=== PATIENT | male | born 1960 | race Caucasian/White ===

== ENCOUNTER → 2016-10-18 | Day surgery (SDC) | payer OTHER ==
[2016-10-14 09:23] VITALS: Ht 188 cm; Wt 69.5 kg
[~2016-10-18] VITALS: Ht 188 cm; Wt 69.5 kg
[~2016-10-18] MED LIST: ASPI81TA28 PO; ATOR-26 PO; CHOL20007 PO; DOCU-94 PO; ESCI10TA17 PO; FLUT0.15 NAE; FLUT1INH INH; FOLI1TAB7 PO; IPRA1AER2 INH; LAMO100T16 PO; LIDOCAINE HCL 2% 2 ML VIAL (20MG/ML) ONE; OXYC-643 PO; PANT40TA PO; PROPOFOL IV EMULSION 10 MG/ML 20 ML VIAL IV ONE; ROTI1DIS TOP; SODIUM CHLORIDE 0.9% 500ML 500 ML IV ONE; SUCR1TAB29 PO
--- NOTE | 2016-10-18 09:08 | Endo History and Physical ---
History & Physical Date of Service: October 18, 2016. Chief Complaint: Gerd with Batista Referring Physician: Dr. Emmanuel Scanlon History of Present Illness epigastric pain and reflux symptoms despite high dose PPI and carafate. Drinks 4-5 POTS of coffee every day, smokes cigarettes. Past Medical History Gastrointestinal Disorder, Reflux, Heart Disease, COPD Past Surgical History Hx Cardiac Surgery: Yes (HEART CATH, NO STENTS; PACE/DEFIB 2013) Hx Internal Defibrillator: Yes (2013) Hx Pacemaker: Yes (2013) Hx Abdominal Surgery: Yes (APPY, HERNIA REPAIR) Hx of Implantable Prosthesis: No Hx Post-Op Nausea and Vomiting: No Hx Cancer Surgery: No Hx Thoracic Surgery: No Hx Orthopedic: Yes (RT THIGH TUMOR REMOVAL (BENIGN)) Hx Urinary Tract Surgery: Yes (BLADDER ENLARGEMENT PROCEDURE) Family History None Social History Smoking Status: Current Every Day Smoker Hx Substance Use: Yes (MARIJUANA 2-3X/MONTH) Hx Alcohol Use: Yes (QUIT 26 YEARS AGO) Allergies Coded Allergies: BEE STING (Verified Allergy, Severe, ANAPHYLAXIS AND RASH, 10/14/16) Mushroom (Verified Allergy, Severe, ANAPHYLAXIS AND RASH, 10/14/16) Penicillins (Verified Allergy, Severe, ANAPHYLAXIS, 10/14/16) Adhesives (Verified Allergy, Unknown, RASH - WITH NICOTINE PATCH, 10/14/16) Current Medications Reported Home Medications Medications Dose Route/Sig Max Daily Dose Days Date Category Lexapro (Escitalopram Oxalate) 10 Mg Tab 1.5 Tab PO QAM 10/14/16 Reported Vitamin D3 (Cholecalciferol) 2,000 Unit Tab 1 Tab PO BID 10/14/16 Reported Lipitor (Atorvastatin Calcium) 80 Mg Tab 80 Mg PO QAM 10/14/16 Reported Aspirin Ec (Aspirin) 81 Mg Tab 81 Mg PO QAM 10/14/16 Reported Breo Ellipta (Fluticasone Furoate-Vilanterol) 1 Inh Inh 1 Puff INH QAM 10/14/16 Reported Folvite (Folic Acid) 1 Mg Tab 1 Mg PO QAM 10/14/16 Reported Protonix (Pantoprazole Sodium) 40 Mg Tab 40 Mg PO BID 10/14/16 Reported Carafate (Sucralfate) 1 Gm Tab 1 Gm PO QID 10/14/16 Reported Combivent Respimat (Ipratropium-Albuterol) 1 Aer Aer 1 Puffs INH QID 10/14/16 Reported Neupro (Rotigotine) 1 Mg/24 Hr Dis 1 Mg TOP DAILY 10/14/16 Reported Lamictal (Lamotrigine) 100 Mg Tab 100 Mg PO QAM 10/14/16 Reported Colace (Docusate Sodium) 100 Mg Cap 1 Cap PO BID PRN 10/14/16 Reported Flonase Allergy Relief (Fluticasone Propionate (Nasal)) 50 Mcg/Act Spr 2 Sprays ZOFIA DAILY PRN 10/14/16 Reported Vital Signs Weight (Kilograms): 69.55 Height (Feet): 6 Height (Inches): 2 Date Time Temp Pulse Resp B/P Pulse Ox O2 Delivery O2 Flow Rate FiO2 10/18/16 08:28 36.6 63 20 140/92 99 Room Air Physical Exam General Appearance: WD/WN, no apparent distress Assessment and Plan EGD with BATISTA placement
--- NOTE | 2016-10-18 09:23 | GI REPORT ---
Procedure Date: 10/18/2016 9:00 AM Procedure: Upper GI endoscopy Indications: Epigastric abdominal pain, Heartburn, Failure to respond to medical treatment - on high dose PPI and carafate with on-going symptoms; drinks 4-6 POTS of coffee a day; smokes cigarettes Medicines: Monitored Anesthesia Care Complications: No immediate complications. Estimated blood loss: None. Estimated Blood Loss: Estimated blood loss: none. Procedure: Pre-Anesthesia Assessment: - Prior to the procedure, a History and Physical was performed, and patient medications, allergies and sensitivities were reviewed. The patient's tolerance of previous anesthesia was reviewed. - The risks and benefits of the procedure and the sedation options and risks were discussed with the patient. All questions were answered and informed consent was obtained. - Patient identification and proposed procedure were verified prior to the procedure by the physician and the nurse. The procedure was verified in the pre-procedure area in the procedure room. - Mental Status Examination: alert and oriented. Airway Examination: normal oropharyngeal airway and neck mobility. Respiratory Examination: clear to auscultation. CV Examination: normal. Abdominal Examination: bowel sounds present, abdomen soft and non-tender, no masses or organomegaly noted. - ASA Grade Assessment: III - A patient with severe systemic disease. After obtaining informed consent, the endoscope was passed under direct vision. Throughout the procedure, the patient's blood pressure, pulse, and oxygen saturations were monitored continuously. The scope was introduced through the mouth, and advanced to the second part of duodenum. The upper GI endoscopy was accomplished without difficulty. The patient tolerated the procedure well. Findings: The examined esophagus was normal. The BATISTA capsule with delivery system was introduced through the mouth and advanced into the esophagus, such that the BATISTA pH capsule was positioned 34 cm from the incisors, which was 6 cm proximal to the EG junction. Suction was applied to the well of the BATISTA pH capsule to suck in the adjacent mucosa of the esophagus using the external vacuum pump set at a minimum vacuum pressure of 550 mmHg for 60 seconds. The BATISTA pH capsule was then deployed by depressing the plunger on top of the handle to advance the locking pin into the mucosa, thereby attaching the capsule to the esophagus. The plunger was then rotated a quarter turn clockwise to release the capsule from the delivery system. The delivery system was then withdrawn. Endoscopy was utilized for probe placement and diagnostic evaluation. A medium amount of food (residue) was found in the gastric body. The examined duodenum was normal. Impression: - Normal esophagus. No esophagitis. - A medium amount of food (residue) in the stomach. - Normal examined duodenum. - The BATISTA pH capsule was positioned 34 cm from the naris, which was 6 cm proximal to the EG junction. - No specimens collected. Recommendation: - Follow BATISTA instructions. Meri Lao D.O. Meri Lao, 10/18/2016 9:23:19 AM This report has been signed electronically. Note Initiated On: 10/18/2016 9:00 AM I attest to the content of the Intraoperative Record and orders documented therein, exceptions below
--- NOTE | 2016-10-18 09:28 | Discharge Instructions ---
Endoscopy Patient Instructions Date / Procedure(s) Performed October 18, 2016. EGD Allergy Information Coded Allergies: BEE STING (Verified Allergy, Severe, ANAPHYLAXIS AND RASH, 10/14/16) Mushroom (Verified Allergy, Severe, ANAPHYLAXIS AND RASH, 10/14/16) Penicillins (Verified Allergy, Severe, ANAPHYLAXIS, 10/14/16) Adhesives (Verified Allergy, Unknown, RASH - WITH NICOTINE PATCH, 10/14/16) Discharge Date / Findings October 18, 2016. Normal EGD aside from food in the stomach; BATISTA placed Medication Instructions Stopped Medication(s): Last Dose ASA yesterday Restart Stopped Medication(s): OK to resume home medications. Contact the referring physician to find out if they want you to take the acid blocking medications during the study period and note this on the paperwork when you return the recorder as noted above Provider Instructions Activity Restrictions - No exercising or heavy lifting for 24 hours. - Do not drink alcohol the day of the procedure. - Do not drive a car or operate machinery until the day after the procedure. - Do not make any important decisions or sign important papers in 24 hours after the procedure. Following Day: - Return to full activity which may include returning to work/school. Diet Start your diet with liquids and light foods (jello, soup, juice, toast). Then eat your usual diet if not nauseated. Treatment For Common After Affects For mild abdominal pain, bloating, or excessive gas: - Rest - Eat lightly - Lie on right side Follow-Up Information Follow-up with Dr. Emmanuel Scanlon as scheduled Anesthesia Information What You Should Know You have had a procedure that required some medicine to reduce anxiety and discomfort. This treatment is called moderate sedation. After receiving the treatment, you may be sleepy, but you will be able to breathe on your own. The effects of the treatment may last for several hours. Follow these instructions along with Activity/Diet recommendations noted above: * Do NOT do anything where dizziness or clumsiness would be dangerous. * Rest quietly at home today, then you can be up and about tomorrow. * Have a responsible person stay with you the rest of today. * You may have had an I.V. today. If so, you may take the dressing off later today. Recommendations Call your doctor if: * Trouble breathing * Continuous vomiting for more than 24 hours * Temperature above 101 degrees * Severe abdominal pain or bloating * Pain not relieved by pain medicine ordered * There is increased drainage or redness from any incision * A large amount of rectal bleeding greater than 2-3 tablespoons. (If you had a polyp/s removed or have hemorrhoids, a small amount of blood - from the rectum is to be expected.) * You have any unanswered questions or concerns. IN THE EVENT OF A SERIOUS EMERGENCY, GO TO THE NEAREST EMERGENCY ROOM Your discharge instructions were prepared by provider Meri Lao. Patient Instructions Signature Page Myles Mendez Patient (or Guardian) Signature/Date: I have read and understand the instructions given to me by my caregivers. Caregiver/RN/Doctor Signature/Date: The above-named patient and/or guardian has received patient instructions on this date. + Original Patient Signature Page (only) stays with chart. Please make copy for patient.
[2016-10-18 09:57] VITALS: BP 144/94; PULSE 61; O2SAT 96
--- NOTE | 2016-10-18 10:04 | Anesthesiology Progress Note ---
Anesthesia Post Op Note Date & Time October 18, 2016 at 10:04 Vital Signs Pain Intensity: 4 Vital Signs Past 12 Hours Date Time Temp Pulse Resp B/P Pulse Ox O2 Delivery O2 Flow Rate FiO2 10/18/16 09:47 61 20 118/94 96 Room Air 10/18/16 09:42 60 20 98/61 96 Room Air 10/18/16 08:28 36.6 63 20 140/92 99 Room Air Notes Mental Status: alert / awake / arousable, participated in evaluation Pt Amnestic to Procedure: Yes Nausea / Vomiting: adequately controlled Pain: adequately controlled Airway Patency, RR, SpO2: stable & adequate BP & HR: stable & adequate Hydration State: stable & adequate Anesthetic Complications: no major complications apparent
== END | disposition home or self-care (01) ==
LOC: C.GI 08:02
PROVIDERS: ATTEND Internal Medicine
DX: K21.9 Gastro-esophageal reflux disease without esophagitis (principal); R10.13 Epigastric pain; F17.210 Nicotine dependence, cigarettes, uncomplicated; J44.9 Chronic obstructive pulmonary disease, unspecified; I51.9 Heart disease, unspecified; Z95.0 Presence of cardiac pacemaker; E78.5 Hyperlipidemia, unspecified; F41.9 Anxiety disorder, unspecified; F32.9 Major depressive disorder, single episode, unspecified